=== PATIENT | female | born 1955 | race Caucasian/White ===

== ENCOUNTER 2019-06-22 14:42 | Emergency (ER) | payer BC, MEDICARE ==
[~2019-06-22] VITALS: Ht 167.6 cm; Wt 70.3 kg
[2019-06-22] MEDS ORDERED: DIPHTH,PERTUSS(ACELL),TET TOX 0.5 ML DISP.SYRIN. VAX IM ONE (15:15)
--- NOTE | 2019-06-22 15:40 | RAD ---
EXAM: CHEST 1 VIEW History: Chest pain, fall COMPARISON: None available. TECHNIQUE: Single portable radiograph of the chest FINDINGS: The cardiac silhouette is unremarkable. The lungs are clear bilaterally. The costophrenic sulci are clear and well demarcated. IMPRESSION: No radiographic evidence of an acute cardiopulmonary process. Electronically signed by: Nico Brandt MD (06/22/2019 3:37 PM) [facility]
--- NOTE | 2019-06-22 15:48 | RAD ---
STUDY: CT head and cervical spine without contrast INDICATION: Fall. COMPARISON: None. TECHNIQUE: Axial CT imaging through the head and cervical spine without the use of intravenous contrast. Sagittal and coronal reformats were obtained. One or more of the following individualized dose reduction techniques were utilized for this examination: 1. Automated exposure control 2. Adjustment of the mA and/or kV according to patient size 3. Use of iterative reconstruction technique. FINDINGS: CT head: No acute intracranial hemorrhage. Maintained smith-white matter interface. No mass effect, midline shift or hydrocephalus. White matter findings most likely on account of chronic microvascular ischemic change. Small remote decorator hand infarcts such is seen involving the right lentiform nucleus. Intracranial atherosclerotic calcifications. Small area of soft tissue density within the left paramidline frontal scalp, image 16 series 2, potentially mild contusive injury. Unremarkable orbits. Intact calvarium. CT cervical spine: No acute fracture or traumatic malalignment. Multifactorial degenerative changes without severe bony encroachment on the central canal or neural foramina. Atherosclerotic calcifications at the carotid bulbs, left more so than right. Thyroid nodules such as on the right measuring up to 1.2 cm. These nodules do not meet size criteria for dedicated follow-up. Unremarkable lung apices. IMPRESSION: CT head: 1. No acute intracranial abnormality by CT. 2. A few remote decorator hand infarcts noted as well as white matter findings most likely on account of chronic microvascular ischemic change. 3. Potential faint scalp contusion at the left frontal paramidline region. Correlate for trauma to this region to confirm. No associated calvarial fracture. CT cervical spine: 1. No acute fracture or traumatic malalignment. 2. Chronic findings as above. Electronically signed by: ALMITA ROBLES MD (06/22/2019 3:45 PM) [facility] [place]
--- NOTE | 2019-06-22 16:01 | RAD ---
Examination: HAND RIGHT 3V History: Pain, fell Comparison/Correlation: None Findings: 3 images of the right hand were obtained. Joint spaces are unremarkable. No acute fracture or bone destruction. Mild degenerative changes at first carpometacarpal joint consistent with age. Soft tissues unremarkable. Impression: No suspicious process. Electronically signed by: Tito Lema MD (06/22/2019 3:58 PM) [facility]
--- NOTE | 2019-06-22 16:03 | RAD ---
Examination: KNEE BILAT 3V History: Fell. Pain. Comparison/Correlation: None Findings: 3 images of the right knee and 3 images of the left knee were obtained. Joint spaces are unremarkable. No fracture or bone destruction. No definite joint effusion. Linear sclerotic density involving the medial aspect of the proximal left tibial metaphysis is present likely representing a bone island or other benign process. Minimal vascular calcification noted . No significant degenerative change overall for the patient's age. Mild right patellofemoral compartment narrowing. Medial and lateral compartments are unremarkable bilaterally. Impression: No acute process. Electronically signed by: Tito Lema MD (06/22/2019 4:00 PM) [facility]
--- NOTE | 2019-06-22 16:40 | PHYS DOC ---
Past History Past Medical History: High Cholesterol Past Surgical History: Appendectomy Alcohol Use: None Drug Use: None Adult General Chief Complaint Chief Complaint: MECHANICAL FALL HPI HPI Patient is a 64-year-old female who presented to ER today for evaluation of head injury, bilateral knee injury, right hand injury after she was walking down the stairs, she slipped and fell forward. She hit her knees on the ground first and then bump her forehead on the ground, no loss of consciousness. She tried to brace [with her right hand, complaining of some pain in her right fourth finger and right side of her chest. She is not on any blood thinner, she is not sure when she had her tetanus shot the last time. She denies any pelvic pain, no hip pain, no back pain. All other ROS is negative unless otherwise noted in HPI Review of Systems Review of Systems See above Current Medications Current Medications Current Medications Medications (Trade) Dose Ordered Sig/Niranjan Start Time Stop Time Status Last Admin Dose Admin Diphtheria/ Tetanus/Acell Pertussis (Boostrix) 0.5 ml ONCE ONCE 06/22/19 15:15 06/22/19 15:17 DC 06/22/19 15:15 0.5 ML Allergies Allergies Allergies Coded Allergies Type Severity Reaction Last Updated Verified Opioids - Morphine Analogues Allergy Unknown 06/22/19 Yes Opioids-Meperidine and Related Allergy Unknown 06/22/19 Yes Physical Exam Physical Exam See above Constitutional: Well developed, well nourished, no acute distress, non-toxic appearance. [] HENT: Normocephalic, There is superficial skin abrasion on forehead. No bony deformity, bilateral external ears normal, oropharynx moist, no oral exudates, nose normal. [] Eyes: PERRLA, EOMI, conjunctiva normal, no discharge. [] Neck: Normal range of motion, no tenderness, supple, no stridor. [] Cardiovascular:Heart rate regular rhythm, no murmur [] Lungs & Thorax: Bilateral breath sounds clear to auscultation. ANTERIOR CHEST WAS IS TENDER TO PALPATION, NO CREPITUS,... Abdomen: Bowel sounds normal, soft, no tenderness, no masses, no pulsatile masses. [] Skin: Warm, dry, SKIN ABRASION ON FOREHEAD, BILATERAL ANTERIOR KNEES. Back: No tenderness, no CVA tenderness. [] Extremities: Bilateral anterior knees with skin abrasion, tender to palpation, Knee joints are stable. Right hand is tender to palpation at the 4th metacarpal bone area. Neurologic: Alert and oriented X 3, normal motor function, normal sensory function, no focal deficits noted. [] Psychologic: Affect normal, judgement normal, mood normal. [] Current Patient Data Vital Signs Vital Signs Date Time Temp Pulse Resp B/P (MAP) Pulse Ox O2 Delivery O2 Flow Rate FiO2 06/22/19 15:05 98.1 74 16 96 Room Air EKG EKG [] Radiology/Procedures Radiology/Procedures [][address] [id number] IMAGING REPORT Signed PATIENT: JOAQUIN GLYNN ACCOUNT: [id number] : 1955 LOCATION: ER AGE: 64 SEX: F EXAM STATUS: REG ER ORD. PHYSICIAN: VANESSA BARRIOS DO REASON: FELL WHILE WALKING DOWN STAIR, HIT HEAD ON FLOOR, NO LOC. PROCEDURE: CT HEAD AND CERVICAL SPINE WO STUDY: CT head and cervical spine without contrast INDICATION: Fall. COMPARISON: None. TECHNIQUE: Axial CT imaging through the head and cervical spine without the use of intravenous contrast. Sagittal and coronal reformats were obtained. One or more of the following individualized dose reduction techniques were utilized for this examination: 1. Automated exposure control 2. Adjustment of the mA and/or kV according to patient size 3. Use of iterative reconstruction technique. FINDINGS: CT head: No acute intracranial hemorrhage. Maintained smith-white matter interface. No mass effect, midline shift or hydrocephalus. White matter findings most likely on account of chronic microvascular ischemic change. Small remote subscription agent infarcts such is seen involving the right lentiform nucleus. Intracranial atherosclerotic calcifications. Small area of soft tissue density within the left paramidline frontal scalp, image 16 series 2, potentially mild contusive injury. Unremarkable orbits. Intact calvarium. CT cervical spine: No acute fracture or traumatic malalignment. Multifactorial degenerative changes without severe bony encroachment on the central canal or neural foramina. Atherosclerotic calcifications at the carotid bulbs, left more so than right. Thyroid nodules such as on the right measuring up to 1.2 cm. These nodules do not meet size criteria for dedicated follow-up. Unremarkable lung apices. IMPRESSION: CT head: 1. No acute intracranial abnormality by CT. 2. A few remote subscription agent infarcts noted as well as white matter findings most likely on account of chronic microvascular ischemic change. 3. Potential faint scalp contusion at the left frontal paramidline region. Correlate for trauma to this region to confirm. No associated calvarial fracture. CT cervical spine: 1. No acute fracture or traumatic malalignment. 2. Chronic findings as above. Electronically signed by: ALMITA ROBLES MD (06/22/2019 3:45 PM) [facility] DICTATED AND SIGNED BY: ALMITA ROBLES MD DATE: 06/22/19 5111 CC: ILDA MARTINES MD; VANESSA BARRIOS DO ~ [address] [id number] IMAGING REPORT Signed PATIENT: JOAQUIN GLYNN ACCOUNT: [id number] : 1955 LOCATION: ER AGE: 64 SEX: F EXAM STATUS: REG ER ORD. PHYSICIAN: VANESSA BARRIOS DO REASON: FELL, BILATERAL KNEES INJURED PROCEDURE: KNEE BILAT 3V Examination: KNEE BILAT 3V History: Fell. Pain. Comparison/Correlation: None Findings: 3 images of the right knee and 3 images of the left knee were obtained. Joint spaces are unremarkable. No fracture or bone destruction. No definite joint effusion. Linear sclerotic density involving the medial aspect of the proximal left tibial metaphysis is present likely representing a bone island or other benign process. Minimal vascular calcification noted . No significant degenerative change overall for the patient's age. Mild right patellofemoral compartment narrowing. Medial and lateral compartments are unremarkable bilaterally. Impression: No acute process. Electronically signed by: Tito Maguire MD (06/22/2019 4:00 PM) [facility] DICTATED AND SIGNED BY: TITO MAGUIRE MD DATE: 06/22/19 1600 CC: ILDA MARTINES MD; VANESSA BARRIOS DO ~ [address] [id number] IMAGING REPORT Signed PATIENT: JOAQUIN GLYNN ACCOUNT: [id number] : 1955 LOCATION: ER AGE: 64 SEX: F EXAM STATUS: REG ER ORD. PHYSICIAN: VANESSA BARRIOS DO REASON: fell right hand injured PROCEDURE: HAND RIGHT 3V Examination: HAND RIGHT 3V History: Pain, fell Comparison/Correlation: None Findings: 3 images of the right hand were obtained. Joint spaces are unremarkable. No acute fracture or bone destruction. Mild degenerative changes at first carpometacarpal joint consistent with age. Soft tissues unremarkable. Impression: No suspicious process. Electronically signed by: Tito Maguire MD (06/22/2019 3:58 PM) [facility] DICTATED AND SIGNED BY: TITO MAGUIRE MD DATE: 06/22/191557 CC: ILDA MARTINES MD; VANESSA BARRIOS DO ~ [place] [address] IMAGING REPORT Signed PATIENT: JOAQUIN GLYNN ACCOUNT: [id number] : 1955 LOCATION: ER AGE: 64 SEX: F EXAM STATUS: REG ER ORD. PHYSICIAN: VANESSA BARRIOS DO REASON: fell right hand injured PROCEDURE: HAND RIGHT 3V Examination: HAND RIGHT 3V History: Pain, fell Comparison/Correlation: None Findings: 3 images of the right hand were obtained. Joint spaces are unremarkable. No acute fracture or bone destruction. Mild degenerative changes at first carpometacarpal joint consistent with age. Soft tissues unremarkable. Impression: No suspicious process. Electronically signed by: Tito Maguire MD (06/22/2019 3:58 PM) [facility] DICTATED AND SIGNED BY: TITO MAGUIRE MD DATE: 06/22/191557 CC: ILDA MARTINES MD; VANESSA BARRIOS DO ~ Course & Med Decision Making Course & Med Decision Making Pertinent Labs and Imaging studies reviewed. (See chart for details) [] Dragon Disclaimer Dragon Disclaimer This electronic medical record was generated, in whole or in part, using a voice recognition dictation system. Departure Departure: Impression: Primary Impression: Head contusion Additional Impressions: Contusion of knee, left Contusion of knee, right Disposition: HOME, SELF-CARE Condition: STABLE Referrals: ILDA MARTINES MD (PCP) follow up with your doctor next week as needed Patient Instructions: Contusion, Head Injury, Adult Problem Qualifiers VANESSA BARRIOS DO Jun 22, 2019 16:40
[2019-06-22 17:02] VITALS: BP 145/76
== END 2019-06-22 16:56 | disposition home or self-care (01) ==
LOC: ER 14:45
DX: S00.93XA Contusion of unspecified part of head, initial encounter (principal); S80.02XA Contusion of left knee, initial encounter; S80.01XA Contusion of right knee, initial encounter; M79.641 Pain in right hand; E78.00 Pure hypercholesterolemia, unspecified; Z88.5 Allergy status to narcotic agent; W01.0XXA Fall on same level from slipping, tripping and stumbling without subsequent striking against object, initial encounter; Y93.01 Activity, walking, marching and hiking; Y92.89 Other specified places as the place of occurrence of the external cause; Y99.8 Other external cause status
CPT/HCPCS: 70450; 71045; 72125; 73130; 73562; 90471; 90715; 99284-25